=== PATIENT | male | born 1985 | race Caucasian/White ===

== ENCOUNTER 2017-04-01 15:34 | Emergency (ER) | payer SELFPAY ==
[2017-04-01 15:40] VITALS: BP 125/72; PULSE 70; RESP 16; TEMP 98.4; O2SAT 99
[2017-04-01] MEDS ORDERED: MORPHINE SULFATE 4 MG/ML INJ IV PUSH ONE (16:30)
[2017-04-01] MEDS ORDERED: ONDANSETRON HCL 4 MG/2 ML VIAL IV PUSH ONE (16:30)
--- NOTE | 2017-04-01 16:32 | PD ---
HPI Chief Complaint: Lump, Cyst, Hernia Time Seen by Provider: 16:19 Travel History International Travel<30 days: No Contact w/Intl Traveler<30days: No Traveled to known affect area: No History of Present Illness HPI 31yo M with recent bilateral inguinal hernia repair 2 months ago in [place] presents to the ED with c/o left inguinal pain that started a few hours ago. States pain started after walking up stairs and carrying something heavy. Pain is constant, localized in left inguinal region and states he feels a ball come out. +Nausea. Pt states he has been exercising when he is not suppose to. Denies any fever, chest pain, vomiting, abdominal pain, dysuria, hematuria, focal weakness or numbness. PFSH Past Medical History Asthma: Yes (childhood asthma) Diminished Hearing: No Tetanus Vaccination: Unknown Influenza Vaccination: No ?: Not Past Surgical History Abdominal Surgery: Yes (hernia repair x2) Social History Alcohol Use: No Tobacco Use: No Substance Use: Yes (occ marijuana use) Allergies-Medications (Allergen,Severity, Reaction): Coded Allergies: Penicillin (Verified Allergy, Mild, rash, 04/01/17) Review of Systems Except as stated in HPI: all other systems reviewed are Neg Physical Exam Narrative GENERAL: 31yo M not in distress. SKIN: Focused skin assessment warm/dry. HEAD: Atraumatic. Normocephalic. CARDIOVASCULAR: Regular rate and rhythm. No murmur appreciated. RESPIRATORY: No accessory muscle use. Clear to auscultation. Breath sounds equal bilaterally. GASTROINTESTINAL: Abdomen soft, +Incision scar pubic region midline. No signs of erythema, bleeding or purulent discharge from scar. +TTP left inguinal region. No mass or hernia palpated. : No testicular ttp. No penile discharge. MUSCULOSKELETAL: No obvious deformities. No clubbing. No cyanosis. No edema. NEUROLOGICAL: Awake and alert. No obvious cranial nerve deficits. Motor grossly within normal limits. Normal speech. PSYCHIATRIC: Appropriate mood and affect; insight and judgment normal. Data Data Last Documented VS Vital Signs Date Time Temp Pulse Resp B/P Pulse Ox O2 Delivery O2 Flow Rate FiO2 04/01/17 17:36 71 163/83 96 04/01/17 15:40 98.4 16 Orders Complete Blood Count With Diff (04/01/17 16:26) Basic Metabolic Panel (Bmp) (04/01/17 16:26) Ct Abd/Pel W Iv Contrast(Rout) (04/01/17 ) Morphine Inj (Morphine Inj) (04/01/17 16:30) Ondansetron Inj (Zofran Inj) (04/01/17 16:30) Iohexol 350 Inj (Omnipaque 350 Inj) (04/01/17 17:06) Morphine Inj (Morphine Inj) (04/01/17 17:30) Labs Laboratory Tests Test 04/01/17 16:58 White Blood Count 7.4 TH/MM3 Red Blood Count 5.38 MIL/MM3 Hemoglobin 16.0 GM/DL Hematocrit 47.5 % Mean Corpuscular Volume 88.2 FL Mean Corpuscular Hemoglobin 29.8 PG Mean Corpuscular Hemoglobin 33.8 % Concent Red Cell Distribution Width 13.1 % Platelet Count 176 TH/MM3 Mean Platelet Volume 7.9 FL Neutrophils (%) (Auto) 59.6 % Lymphocytes (%) (Auto) 31.5 % Monocytes (%) (Auto) 6.6 % Eosinophils (%) (Auto) 1.5 % Basophils (%) (Auto) 0.8 % Neutrophils # (Auto) 4.4 TH/MM3 Lymphocytes # (Auto) 2.3 TH/MM3 Monocytes # (Auto) 0.5 TH/MM3 Eosinophils # (Auto) 0.1 TH/MM3 Basophils # (Auto) 0.1 TH/MM3 CBC Comment DIFF FINAL Differential Comment Sodium Level 144 MEQ/L Potassium Level 4.0 MEQ/L Chloride Level 110 MEQ/L Carbon Dioxide Level 27.3 MEQ/L Anion Gap 7 MEQ/L Blood Urea Nitrogen 21 MG/DL Creatinine 1.20 MG/DL Estimat Glomerular Filtration 72 ML/MIN Rate Random Glucose 92 MG/DL Calcium Level 9.5 MG/DL [facility] Medical Decision Making Medical Screen Exam Complete: Yes Emergency Medical Condition: Yes Differential Diagnosis Inguinal hernia incarceration vs. muscle sprain Narrative Course 31yo M with left groin pain. No evidence of hernia seen on exam. Labs reviewed , no leukocytosis. BMP unremarkable. CT a/p showed unremarkable study except for small bilateral hydroceles and moderate amount of stool. Pt given zofran and morphine which resolved the pain. Return precautions given. Pt tolerating PO. Abdomen soft, NT/ND. Diagnosis Primary Impression: Abdominal pain Qualified Code: R10.32 - Left lower quadrant pain Patient Instructions: General Instructions Departure Forms: Tests/Procedures Additional Instructions: Please follow up with [facility] as outpatient. Return to the ED if symptoms worsen. Med/Other Pt SpecificInfo: Prescription(s) given Scripts Ibuprofen 600 Mg [id number] Mg PO Q8HR PRN (PAIN) #20 TAB Ref 0 Prov:Yoanna Coffman DO 04/01/17 Disposition: 01 DISCHARGE HOME Condition: Stable Yoanna Coffman DO Apr 01, 2017 16:32
[2017-04-01] MEDS ORDERED: IOHEXOL 350 MG/ML 10 ML VIAL (for RAD DIAG) IV ONE (17:06)
[2017-04-01 17:16] LABS: AUTOMATED NEUTROPHIL # 4.4 TH/MM3 (1.8-7.7); BASOPHIL # 0.1 TH/MM3 (0-0.2); BASOPHIL % 0.8 % (0.0-2.0); EOSINOPHIL # 0.1 TH/MM3 (0-0.4); EOSINOPHIL % 1.5 % (0.0-4.0); HEMATOCRIT 47.5 % (39.0-51.0); HEMO FLAGS DIFF FINAL; LYMPH % 31.5 % (9.0-44.0); LYMPHOCYTE # 2.3 TH/MM3 (1.0-4.8); MEAN CELL VOLUME 88.2 FL (80.0-100.0); MEAN CORPUSCULAR HEMOGLOBIN 29.8 PG (27.0-34.0); MEAN CORPUSCULAR HGB CONC 33.8 % (32.0-36.0); MONO % 6.6 % (0.0-8.0); NEUT % 59.6 % (16.0-70.0); PLATELET COUNT 176 TH/MM3 (150-450); RED BLOOD COUNT 5.38 MIL/MM3 (4.50-5.90); RED CELL DISTRIBUTION WIDTH 13.1 % (11.6-17.2); WHITE BLOOD COUNT 7.4 TH/MM3 (4.0-11.0)
[2017-04-01 17:29] LABS: BICARBONATE 27.3 MEQ/L (21.0-32.0)
[2017-04-01] MEDS ORDERED: MORPHINE SULFATE 8 MG/ML INJ IV PUSH ONE (17:30)
[2017-04-01 17:36] VITALS: BP 163/83; PULSE 71; O2SAT 96
--- NOTE | 2017-04-01 17:59 | RADRPT ---
EXAM DATE/TIME: 04/01/2017 17:38 [facility] COMPARISON: No previous studies available for comparison. INDICATIONS : Left groin pain; recent hernia repair. IV CONTRAST: 100 cc Omnipaque 350 (iohexol) IV ORAL CONTRAST: No oral contrast ingested. RADIATION DOSE: 12.10 CTDIvol (mGy) MEDICAL HISTORY : None SURGICAL HISTORY : Hernia repair. ENCOUNTER: Initial ACUITY: 1 day PAIN SCALE: 3/10 LOCATION: Left groin TECHNIQUE: Volumetric scanning of the abdomen and pelvis was performed. Using automated exposure control and ad justment of the mA and/or kV according to patient size, radiation dose was kept as low as reasonably achievable to obtain optimal diagnostic quality images. DICOM format image data is available electro nically for review and comparison. FINDINGS: CT Abdomen: The liver, spleen, pancreas, kidneys, adrenals are unremarkable. There is no evidence for any appreciable pathological adenopathy, free fluid, or bowel obstruction. CT pelvis: There is no evidence for mass, abscess formation, or any significant adenopathy within the pelvis. The prostate gland is inhomogeneous and measures 2.7 x 3.3 cm in AP and transverse diameters and nonspecific. There is moderate amount of stool throughout the colon. The appendix appears intact without definite signs of appendicitis. There is haziness within the inguinal canals may be due to p rior surgery without evidence for herniation. Small bilateral hydroceles are present within the scrot al sacs. CONCLUSION: Essentially unremarkable study except for small bilateral hydroceles and moderate levi unt of stool. Roxana Sotomayor MD on April 01, 2017 at 17:56 Board Certified Radiologist. This report was verified electronically.
[2017-04-01] MEDS ORDERED: IBUP-232 PO (19:11)
[2017-04-01 19:37] VITALS: BP 117/72
== END 2017-04-01 19:39 | disposition home or self-care (01) ==
LOC: PHED 15:34
DX: R10.32 Left lower quadrant pain (principal); Z98.890 Other specified postprocedural states; N43.3 Hydrocele, unspecified
CPT/HCPCS: 74177; 80048; 85025; 96374; 96375; 99285; J2270; J2405; Q9967

== ENCOUNTER 2017-05-06 17:18 | Emergency (ER) | payer SELFPAY ==
[~2017-05-06] VITALS: Ht 170.2 cm; Wt 84.1 kg
[~2017-05-06 17:18] MED LIST: IBUP-232 PO
[2017-05-06 17:21] VITALS: BP 146/67; PULSE 97; RESP 16; TEMP 98.4; O2SAT 99
[2017-05-06] MEDS ORDERED: IBUP-232 PO (19:44)
--- NOTE | 2017-05-06 19:45 | PD ---
HPI Chief Complaint: Pain: Acute or Chronic Time Seen by Provider: 19:40 Travel History International Travel<30 days: No Contact w/Intl Traveler<30days: No Traveled to known affect area: No History of Present Illness HPI 31 year old male presents to the emergency department for evaluation of left groin pain. Patient had bilateral inguinal hernia surgery done approximately 3 months ago in [place]. He states that he has intermittent left groin pain. However, it worsened today after doing heavy lifting. Patient was seen in March for the same issue and a CT scan done at that time which was normal. Patient is asking for an ultrasound. No fevers or chills. No abdominal pain. No nausea or vomiting. No other complaints at this time. PFSH Past Medical History Asthma: Yes (childhood asthma) Diminished Hearing: No Past Surgical History Abdominal Surgery: Yes (hernia repair x2) Social History Alcohol Use: No Tobacco Use: No Substance Use: Yes (occ marijuana use) Allergies-Medications (Allergen,Severity, Reaction): Coded Allergies: penicillin G (Unverified Allergy, Mild, rash, 05/06/17) Reported Meds & Prescriptions Reported Meds & Active Scripts Active No Active Prescriptions or Reported Medications Review of Systems Except as stated in HPI: all other systems reviewed are Neg Physical Exam Narrative GENERAL: Well-nourished, well-developed male patient, afebrile. SKIN: Focused skin assessment warm/dry. HEAD: Normocephalic. Atraumatic. EYES: No scleral icterus. No injection or drainage. NECK: Supple, trachea midline. No JVD or lymphadenopathy. CARDIOVASCULAR: Regular rate and rhythm without murmurs, gallops, or rubs. RESPIRATORY: Breath sounds equal bilaterally. No accessory muscle use. Lungs sounds are clear to auscultation. GASTROINTESTINAL: Abdomen soft, non-tender, nondistended. No notable hernia on palpation to the left groin. He has mild tenderness to palpation. No other tenderness. MUSCULOSKELETAL: No cyanosis, or edema. BACK: Nontender without obvious deformity. No CVA tenderness. Data Data Last Documented VS Vital Signs Date Time Temp Pulse Resp B/P Pulse Ox O2 Delivery O2 Flow Rate FiO2 05/06/17 17:21 98.4 97 16 146/67 99 Orders Ed Poc Ultrasound (05/06/17 ) [facility] Medical Decision Making Medical Screen Exam Complete: Yes Emergency Medical Condition: Yes Medical Record Reviewed: Yes Differential Diagnosis Inguinal hernia versus pain from inguinal hernia surgery versus medical clearance Narrative Course 31-year-old male presents to the emergency department for evaluation of left groin pain that has been intermittent since surgery 3 months ago, but worsened today after doing heavy lifting. There is no hernia on exam. My attending physician, Dr. Lopez, performed ultrasound at bedside and no inguinal abnormalities were appreciated. Patient stable for discharge home. He'll be discharged with a prescription for ibuprofen. He is encouraged to follow-up with his primary care physician. He is instructed on emergent conditions to immediately return here for. He verbalizes agreement and understanding. The patient was discharged in stable condition with instructions, including return instructions and follow up instructions. Diagnosis Primary Impression: Left groin pain Referrals: Primary Care Physician call for appointment Patient Instructions: General Instructions, Groin Strain (ED) Additional Instructions: Take ibuprofen as directed as needed with food for pain. Follow-up with your primary care physician. Return to the emergency department for any acute worsening of symptoms. Med/Other Pt SpecificInfo: Prescription(s) given Scripts Ibuprofen 600 Mg Qfs173 Mg PO QID #20 TAB Ref 0 Prov:Shanta Gambino 05/06/17 Disposition: DISCHARGE HOME Condition: Stable Shanta Gambino May 06, 2017 19:45
== END 2017-05-06 20:01 | disposition home or self-care (01) ==
LOC: NEPD 17:18
DX: R10.32 Left lower quadrant pain (principal)
CPT/HCPCS: 99284